=== PATIENT | male | born 1935 | race Caucasian/White ===

== ENCOUNTER 2020-11-07 14:21 | Inpatient (IN) | payer OTHER ==
[~2020-11-07] VITALS: Ht 180.3 cm; Wt 81.6 kg
[~2020-11-07 14:21] MED LIST: KEFLEX CAP 500500 MG PO
[2020-11-07 16:04] LABS: HEMOGLOBIN 12.8 gm/dl (14.0-17.5); RED BLOOD COUNT 4.04 M/UL (4.20-5.50); WHITE BLOOD COUNT 6.5 K/UL (4.5-11.0)
[2020-11-07 16:25] LABS: BUN/CREATININE RATIO 14 (0-10)
[2020-11-07 17:47] LABS: BORDETELLA PARAPERTUSSIS Not Detected (Not Detectd); BORDETELLA PERTUSSIS Not Detected (Not Detectd); CHLAMYDIA PNEUMONIAE Not Detected (Not Detectd); CORONAVIRUS HKU1 Not Detected (Not Detectd); CORONAVIRUS NL63 Not Detected (Not Detectd); CORONAVIRUS OC43 Not Detected (Not Detectd); CORONOAVIRUS 229E Not Detected (Not Detectd); HUMAN METAPNEUMOVIRUS Not Detected (Not Detectd); HUMAN RHINOVIRUS/ENTEROVIRUS Not Detected (Not Detectd); INFLUENZA A Not Detected (Not Detectd); INFLUENZA B Not Detected (Not Detectd); MYCOPLASMA PNEUMONIAE Not Detected (Not Detectd); PARAINFLUENZA VIRUS 1 Not Detected (Not Detectd); PARAINFLUENZA VIRUS 2 Not Detected (Not Detectd); PARAINFLUENZA VIRUS 3 Not Detected (Not Detectd); PARAINFLUENZA VIRUS 4 Not Detected (Not Detectd); RESPIRATORY SYNCYTIAL VIRUS Not Detected (Not Detectd)
[2020-11-07 18:55] LABS: SARS-CoV-2 NOT DETECTED (Not Detectd)
[2020-11-08] MEDS ORDERED: NORVASC5 MG PO (08:49)
[2020-11-08] MEDS ORDERED: DILTIAZEM 24HR240 M1 PO (08:49)
[2020-11-08] MEDS ORDERED: SYNTHROID50 MCG PO (08:50)
[2020-11-08] MEDS ORDERED: ARTIFICIAL TEAR15 ML EYEBOTH (08:50)
[2020-11-08] MEDS ORDERED: PROSCAR 5 MG TAB5 MG PO (08:50)
[2020-11-09 02:32] LABS: HEMOGLOBIN 11.3 gm/dl (14.0-17.5); WHITE BLOOD COUNT 5.4 K/UL (4.5-11.0)
[2020-11-09 02:35] LABS: RED BLOOD COUNT 3.58 M/UL (4.20-5.50)
[2020-11-10 02:59] LABS: HEMOGLOBIN 11.3 gm/dl (14.0-17.5); RED BLOOD COUNT 3.61 M/UL (4.20-5.50); WHITE BLOOD COUNT 5.2 K/UL (4.5-11.0)
[2020-11-11 06:02] LABS: HEMOGLOBIN 11.6 gm/dl (14.0-17.5); RED BLOOD COUNT 3.65 M/UL (4.20-5.50); WHITE BLOOD COUNT 5.5 K/UL (4.5-11.0)
[2020-11-11] MEDS ORDERED: AUGMENTIN 875-1 EACH PO (09:55)
[2020-11-11] MEDS ORDERED: ZITHROMAX500 MG PO (09:56)
[2020-11-11] MEDS ORDERED: FLOMAX 0.4 MG0.4 MG PO (10:03)
--- NOTE | 2020-11-11 12:46 | NUR ---
PER NURSING, THE PATIENT'S O2 SATS WERE 88% ON ROOM AIR.
== END 2020-11-11 15:47 | disposition home or self-care (01) | DRG 871 ==
LOC: ER1 14:21 → PROG CARE 18:04 → CDU 18:04 → PROG CARE 11-08 07:33 → MED SURG 4 11-10 20:22
PROVIDERS: Emergency Medicine; Internal Medicine; ADMIT Hospitalist
PROC: B24BZZZ Ultrasonography of Heart with Aorta (ICD-10-PCS; principal; 2020-11-09)
DX: A41.89 Other specified sepsis (principal); J80 Acute respiratory distress syndrome; J15.9 Unspecified bacterial pneumonia; G93.41 Metabolic encephalopathy; Z20.822 Contact with and (suspected) exposure to COVID-19; N13.6 Pyonephrosis; J84.9 Interstitial pulmonary disease, unspecified; A41.51 Sepsis due to Escherichia coli [E. coli]; I10 Essential (primary) hypertension; E03.9 Hypothyroidism, unspecified; E87.6 Hypokalemia; N40.0 Benign prostatic hyperplasia without lower urinary tract symptoms; Z90.49 Acquired absence of other specified parts of digestive tract; Z88.8 Allergy status to other drugs, medicaments and biological substances; Z82.3 Family history of stroke; Z79.890 Hormone replacement therapy; Z79.899 Other long term (current) drug therapy
CPT/HCPCS: 36415; 36600; 70450; 71045; 71250; 80048; 80053; 80307; 81001; 82140; 82550; 82553; 82803; 83605; 83690; 83735; 83874; 83880; 84439; 84443; 84484; 85025; 85027; 85610; 85730; 87040; 87077; 87086; 87186; 87633; 93005; 94664; 94760; 96365; 96366; 96368; 96372; 97110-GP-CQ; 97116-GP-CQ; 97162; 97166; 97530; 97530-GP-CQ; 97535; 99285; J0456; J0696; J1650; J3370; J7030; J7070; U0003

== ENCOUNTER → 2021-07-20 | Outpatient (CLI) | payer OTHER ==
[~2021-07-20] MED LIST changes: +ARTIFICIAL TEAR15 ML EYEBOTH; +AUGMENTIN 875-1 EACH PO; +DILTIAZEM 24HR240 M1 PO; +FLOMAX 0.4 MG0.4 MG PO; +NORVASC5 MG PO; +PROSCAR 5 MG TAB5 MG PO; +SYNTHROID50 MCG PO; +ZITHROMAX500 MG PO
== END ==
LOC: KOH-I 09:15
DX: D38.1 Neoplasm of uncertain behavior of trachea, bronchus and lung (principal); R91.8 Other nonspecific abnormal finding of lung field; K80.80 Other cholelithiasis without obstruction
CPT/HCPCS: 71250